=== PATIENT | female | born 1965 | race Caucasian/White ===

== ENCOUNTER 2016-10-20 02:14 | Inpatient (IN) | payer OTHER ==
[~2016-10-20] VITALS: Ht 177.8 cm; Wt 102.1 kg
[~2016-10-20 02:14] MED LIST: HYDR-3326 PO
[2016-10-20] MEDS ORDERED: IV NS 0.9% 1,000 ML BAG IV ONE (03:30)
[2016-10-20] MEDS ORDERED: ALPRAZOLAM 0.5 MG TABLET PO ONE (03:30)
[2016-10-20] MEDS ORDERED: VANCOMYCIN 1 GM in IV D5W 250 ML IV ONE (03:30)
[2016-10-20] MEDS ORDERED: ALPRAZOLAM 0.5 MG TABLET ONE ×2 (03:32→21:19)
[2016-10-20] MEDS ORDERED: VANCOMYCIN 1 GM VIAL ONE (03:32)
[2016-10-20] MEDS ORDERED: IV NS 0.9% 3,000 ML ONE (03:33)
[2016-10-20] MEDS ORDERED: IV SET PRIMARY PUMP SET 1 EA INFUS.SET MC ONE ×2 (03:33→10:00)
[2016-10-20] MEDS ORDERED: IV D5W 250 ML IV ONE (03:33)
[2016-10-20] MEDS ORDERED: IV SET PRIMARY 1 EA INFUS.SET MC ONE (03:33)
[2016-10-20 03:47] LABS: BASOPHILS % (AUTO) 0.2 % (0.0-2.0); DIFF TOTAL % 100 %; EOSINOPHILS # (AUTO) 0.3 /CMM (0.0-0.7); EOSINOPHILS % (AUTO) 2.6 % (0.0-6.0); HEMATOCRIT 42 % (33-45); HEMOGLOBIN 13.8 g/dL (11.5-14.8); LYMPHOCYTES # (AUTO) 2.3 /CMM (0.8-4.8); LYMPHOCYTES % (AUTO) 18.8 % (20.0-44.0); MEAN CORPUSCULAR HEMOGLOBIN 28 PG (26.0-33.0); MEAN CORPUSCULAR HGB CONC 33 g/dl (31.0-36.0); MEAN CORPUSCULAR VOLUME 86 fL (82-100); MONOCYTES # (AUTO) 0.7 /CMM (0.1-1.30); NEUTROPHILS # (AUTO) 8.8 /CMM (1.8-8.9); NEUTROPHILS % (AUTO) 72.4 % (43.0-81.0); PLATELET COUNT (AUTO) 385 /CMM (150-450); WHITE BLOOD COUNT (AUTO) 12.1 K/uL (4.3-11.0)
[2016-10-20 04:01] LABS: INR 0.95 (0.87-1.13); PROTHROMBIN TIME 10.3 SECS (9.5-12.7)
[2016-10-20 04:05] LABS: TROPONIN I < 0.017 ng/mL (0.00-0.056)
[2016-10-20 04:07] LABS: ALANINE AMINOTRANSFERASE 29 U/L (12-78); ALBUMIN 2.9 g/dL (3.4-5.0); ANION GAP 4 (5-14); ASPARTATE AMINOTRANSFERASE 13 U/L (15-37); BILIRUBIN,DIRECT 0.1 mg/dL (0.0-0.2); BILIRUBIN,TOTAL 0.2 mg/dL (0.2-1.0); CALCIUM, SERUM 9.4 mg/dL (8.5-10.1); CARBON DIOXIDE 29 mmol/L (21-32); CHLORIDE 94 mmol/L (98-107); CREATININE 0.7 mg/dL (0.6-1.3); GFR 88 mL/min (>60); INDIRECT BILIRUBIN 0.1 mg/dL (0.0-1.1); POTASSIUM 3.6 mmol/L (3.5-5.1); SODIUM SERUM 123 mmol/L (136-145); TOTAL PROTEIN, SERUM 8.6 g/dL (6.4-8.2); UREA NITROGEN, BLOOD 12 mg/dL (7-18)
[2016-10-20 04:12] LABS: GLUCOSE 385 mg/dL (74-106)
[2016-10-20] MEDS ORDERED: ONDANSETRON HCL/PF 4 MG/2 ML VIAL ONE (04:29)
[2016-10-20] MEDS ORDERED: HYDROMORPHONE 1 MG/1 ML DISP.SYRIN ONE (04:29)
[2016-10-20] MEDS ORDERED: INSULIN REGULAR, HUMAN 100 UNIT/ML 10 ML VIAL ONE (04:48)
[2016-10-20] MEDS ORDERED: MISCELLANEOUS MED 1 EA EA XX ONE ×2 (05:00)
[2016-10-20] MEDS ORDERED: HYDROMORPHONE 1 MG/1 ML DISP.SYRIN IV PRN (05:00)
[2016-10-20 06:05] VITALS: BP 121/64
[2016-10-20] MEDS ORDERED: *INSULIN REGULAR(HUMULIN R)HUM 100 UNIT/ML VIAL SQ PRN ×2 (07:30→12:00)
[2016-10-20] MEDS ORDERED: ACETAMINOPHEN 325 MG TABLET PO PRN (07:30)
[2016-10-20] MEDS ORDERED: DEXTROSE 50%-WATER 50 ML DISP.SYRIN IV PRN ×2 (07:30→12:00)
[2016-10-20] MEDS ORDERED: BLOOD SUGAR DIAGNOSTIC 1 EACH STRIP VI SCH (07:30)
[2016-10-20] MEDS ORDERED: MAGNESIUM HYDROXIDE 30 ML UDC PO PRN (07:30)
[2016-10-20] MEDS ORDERED: ONDANSETRON HCL/PF 4 MG/2 ML VIAL IVP PRN (07:30)
[2016-10-20] MEDS ORDERED: INSULIN REGULAR, HUMAN 100 UNIT/ML 3 ML VIAL SQ PRN (07:30)
[2016-10-20] MEDS ORDERED: MAG HYDROX/AL HYDROX/SIMETH 30 ML UDC PO PRN (07:30)
[2016-10-20] MEDS ORDERED: HYDROCODONE/APAP 5/325MG 1 EACH TABLET PO PRN (07:30)
[2016-10-20] MEDS ORDERED: ZOLPIDEM TARTRATE 5 MG TABLET PO PRN (07:30)
[2016-10-20] MEDS ORDERED: Z GUARD REMEDY 2 OZ OINT TP PRN (07:30)
[2016-10-20 07:40] LABS: CHOLESTEROL 104 mg/dL (<200); HDL CHOLESTEROL 30 mg/dL (40-60); LDL 60 mg/dL (0-99); TRIGLYCERIDES 147 mg/dL (30-150)
[2016-10-20 08:00] VITALS: BP 112/60
[2016-10-20] MEDS ORDERED: METF500T4 PO (08:21)
[2016-10-20] MEDS ORDERED: ALPR0.5T PO (08:21)
[2016-10-20] MEDS ORDERED: INSU3INS6 SQ (08:21)
[2016-10-20] MEDS ORDERED: ASPI-605 PO (08:21)
[2016-10-20] MEDS: PANTOPRAZOLE 40 MG TABLET.DR PO SCH (08:24)
[2016-10-20] MEDS: HYDROCODONE/APAP 10/325MG 1 EA TABLET PO PRN ×2 (08:24→22:29)
[2016-10-20] MEDS ORDERED: FEE PK DOSING 1 MIN EA MC ONE (08:30)
[2016-10-20] MEDS: IV NS 0.9% 1,000 ML IV PRN (10:05)
[2016-10-20] MEDS ORDERED: SECONDARY IV SET 1 EA INFUS.SET MC ONE ×2 (12:22→20:32)
[2016-10-20] MEDS: INSULIN REGULAR, HUMAN 100 UNIT/ML 3 ML VIAL SQ PRN ×2 (12:29→17:49)
[2016-10-20] MEDS: VANCOMYCIN 1 GM in IV D5W 250 ML IV SCH ×2 (12:30→20:31)
[2016-10-20] MEDS: BLOOD SUGAR DIAGNOSTIC 1 EACH STRIP IN SCH ×3 (12:30→22:00)
[2016-10-20 16:00] VITALS: BP 112/64
[2016-10-20 20:07] VITALS: BP 146/71
[2016-10-20] MEDS ORDERED: ALPRAZOLAM 0.25 MG TABLET PO PRN (21:00)
[2016-10-20] MEDS: ALPRAZOLAM 0.5 MG TABLET PO PRN (21:34)
[2016-10-20 22:00] VITALS: BP 146/71
[2016-10-20] MEDS: INSULIN DETEMIR 100 UNIT/ML CARTRIDGE SQ SCH (22:00)
[2016-10-20] MEDS ORDERED: INSULIN DETEMIR 100 UNIT/ML CARTRIDGE SQ ONE (22:30)
[2016-10-21] MEDS: IV NS 0.9% 1,000 ML IV PRN (03:43)
[2016-10-21] MEDS: VANCOMYCIN 1 GM in IV D5W 250 ML IV SCH ×3 (03:43→22:29)
[2016-10-21 06:36] LABS: BASOPHILS # (AUTO) 0.1 /CMM (0.0-0.2); BASOPHILS % (AUTO) 0.7 % (0.0-2.0); DIFF TOTAL % 100 %; EOSINOPHILS # (AUTO) 0.3 /CMM (0.0-0.7); EOSINOPHILS % (AUTO) 3.7 % (0.0-6.0); HEMATOCRIT 36 % (33-45); HEMOGLOBIN 11.9 g/dL (11.5-14.8); LYMPHOCYTES # (AUTO) 2.8 /CMM (0.8-4.8); LYMPHOCYTES % (AUTO) 35.4 % (20.0-44.0); MEAN CORPUSCULAR HEMOGLOBIN 28 PG (26.0-33.0); MEAN CORPUSCULAR HGB CONC 33 g/dl (31.0-36.0); MEAN CORPUSCULAR VOLUME 86 fL (82-100); MONOCYTES # (AUTO) 0.7 /CMM (0.1-1.30); MONOCYTES % (AUTO) 8.3 % (2.0-12.0); NEUTROPHILS # (AUTO) 4.2 /CMM (1.8-8.9); NEUTROPHILS % (AUTO) 51.9 % (43.0-81.0); PLATELET COUNT (AUTO) 325 /CMM (150-450); RED BLOOD CELL COUNT(AUTO) 4.22 MIL/uL (4.0-5.2)
[2016-10-21] MEDS: BLOOD SUGAR DIAGNOSTIC 1 EACH STRIP IN SCH ×2 (06:40→11:31)
[2016-10-21] MEDS: INSULIN REGULAR, HUMAN 100 UNIT/ML 3 ML VIAL SQ PRN ×3 (06:40→16:33)
[2016-10-21] MEDS ORDERED: LIDOCAINE HCL/PF 1% 30 ML SDV ONE (06:54)
[2016-10-21 06:55] LABS: CALCIUM, SERUM 8.6 mg/dL (8.5-10.1); CREATININE 0.7 mg/dL (0.6-1.3); POTASSIUM 4.2 mmol/L (3.5-5.1)
[2016-10-21] MEDS ORDERED: FENTANYL PF 100MCG/2ML AMPUL ONE (06:59)
[2016-10-21 07:01] VITALS: BP 132/65
[2016-10-21] MEDS ORDERED: BACITRACIN 50000 UNITS/VIAL ONE (07:12)
[2016-10-21] MEDS ORDERED: HYDROGEN PEROXIDE 480 ML BOTTLE ONE (07:34)
[2016-10-21 08:00] VITALS: BP_SYST 106; BP_SYST 132; BP_DIAS 53; BP_DIAS 65
[2016-10-21] MEDS: PANTOPRAZOLE 40 MG TABLET.DR PO SCH (08:55)
[2016-10-21] MEDS: ASPIRIN EC 81 MG TABLET.DR PO SCH (08:55)
[2016-10-21] MEDS: HYDROCODONE/APAP 10/325MG 1 EA TABLET PO PRN ×3 (11:30→22:36)
[2016-10-21] MEDS ORDERED: ANESTHESIA TRAY IN PYXIS 1 EA TRAY MC ONE (14:43)
[2016-10-21] MEDS: BLOOD SUGAR DIAGNOSTIC 1 EACH STRIP VI SCH ×3 (15:30→22:23)
[2016-10-21] MEDS ORDERED: DEXTROSE 50%-WATER 50 ML DISP.SYRIN IV PRN (15:30)
[2016-10-21] MEDS ORDERED: *INSULIN REGULAR(HUMULIN R)HUM 100 UNIT/ML VIAL SQ PRN (15:30)
[2016-10-21 16:00] VITALS: BP 130/64
[2016-10-21] MEDS: METFORMIN 500 MG TABLET PO SCH (16:23)
[2016-10-21 20:00] VITALS: BP_SYST 132; BP_DIAS 72; BP_DIAS 77
[2016-10-21] MEDS ORDERED: SECONDARY IV SET 1 EA INFUS.SET MC ONE (20:38)
[2016-10-21] MEDS: CEFTRIAXONE 1 G in IV D5W 50 ML IV SCH (20:44)
[2016-10-21] MEDS: INSULIN DETEMIR 100 UNIT/ML CARTRIDGE SQ SCH (22:23)
[2016-10-22] MEDS: IV NS 0.9% 1,000 ML IV PRN (01:42)
[2016-10-22] MEDS: ALPRAZOLAM 0.5 MG TABLET PO PRN (01:45)
[2016-10-22] MEDS: VANCOMYCIN 1 GM in IV D5W 250 ML IV SCH ×2 (05:03→11:53)
[2016-10-22] MEDS: BLOOD SUGAR DIAGNOSTIC 1 EACH STRIP VI SCH (06:45)
[2016-10-22] MEDS: PANTOPRAZOLE 40 MG TABLET.DR PO SCH (06:45)
[2016-10-22] MEDS: INSULIN REGULAR, HUMAN 100 UNIT/ML 3 ML VIAL SQ PRN ×3 (06:48→16:33)
[2016-10-22 07:01] LABS: CALCIUM, SERUM 8.5 mg/dL (8.5-10.1); CREATININE 0.6 mg/dL (0.6-1.3); POTASSIUM 4.1 mmol/L (3.5-5.1)
[2016-10-22 08:00] VITALS: BP 136/69
[2016-10-22] MEDS: ASPIRIN EC 81 MG TABLET.DR PO SCH (08:26)
[2016-10-22] MEDS: METFORMIN 500 MG TABLET PO SCH ×2 (08:26→16:35)
[2016-10-22] MEDS: HYDROCODONE/APAP 10/325MG 1 EA TABLET PO PRN ×3 (08:29→22:59)
[2016-10-22] MEDS ORDERED: DEXTROSE 50%-WATER 50 ML DISP.SYRIN IV PRN (11:30)
[2016-10-22] MEDS ORDERED: INSULIN DETEMIR 100 UNIT/ML CARTRIDGE SQ ONE (11:45)
[2016-10-22] MEDS: BLOOD SUGAR DIAGNOSTIC 1 EACH STRIP IN SCH ×3 (11:53→22:00)
[2016-10-22 15:39] VITALS: BP 129/60
[2016-10-22 16:00] VITALS: BP 129/60
[2016-10-22] MEDS: INSULIN DETEMIR 100 UNIT/ML CARTRIDGE SQ SCH (16:33)
[2016-10-22] MEDS: LACTOBACILLUS RHAMNOSUS GG 1 EACH CAP.SPRINK PO SCH (16:35)
[2016-10-22 20:00] VITALS: BP 106/55
[2016-10-22] MEDS: CEFTRIAXONE 1 G in IV D5W 50 ML IV SCH (22:59)
[2016-10-22] MEDS: *INSULIN REGULAR(HUMULIN R)HUM 100 UNIT/ML VIAL SQ PRN (23:25)
[2016-10-23] MEDS: ALPRAZOLAM 0.5 MG TABLET PO PRN ×2 (00:23→19:50)
[2016-10-23 06:56] LABS: BASOPHILS % (AUTO) 0.5 % (0.0-2.0); DIFF TOTAL % 100 %; EOSINOPHILS # (AUTO) 0.4 /CMM (0.0-0.7); EOSINOPHILS % (AUTO) 4.2 % (0.0-6.0); HEMATOCRIT 36 % (33-45); HEMOGLOBIN 11.8 g/dL (11.5-14.8); LYMPHOCYTES # (AUTO) 3.3 /CMM (0.8-4.8); LYMPHOCYTES % (AUTO) 37.6 % (20.0-44.0); MEAN CORPUSCULAR HEMOGLOBIN 28 PG (26.0-33.0); MEAN CORPUSCULAR HGB CONC 33 g/dl (31.0-36.0); MEAN CORPUSCULAR VOLUME 86 fL (82-100); MONOCYTES # (AUTO) 0.5 /CMM (0.1-1.30); MONOCYTES % (AUTO) 5.8 % (2.0-12.0); NEUTROPHILS # (AUTO) 4.5 /CMM (1.8-8.9); NEUTROPHILS % (AUTO) 51.9 % (43.0-81.0); PLATELET COUNT (AUTO) 316 /CMM (150-450); RED BLOOD CELL COUNT(AUTO) 4.19 MIL/uL (4.0-5.2); WHITE BLOOD COUNT (AUTO) 8.8 K/uL (4.3-11.0)
[2016-10-23] MEDS: BLOOD SUGAR DIAGNOSTIC 1 EACH STRIP IN SCH ×4 (06:58→22:12)
[2016-10-23] MEDS: INSULIN REGULAR, HUMAN 100 UNIT/ML 3 ML VIAL SQ PRN ×2 (07:00→12:19)
[2016-10-23 07:10] LABS: CALCIUM, SERUM 8.6 mg/dL (8.5-10.1); CREATININE 0.7 mg/dL (0.6-1.3); POTASSIUM 3.9 mmol/L (3.5-5.1)
[2016-10-23 08:00] VITALS: BP 108/65
[2016-10-23] MEDS: ASPIRIN EC 81 MG TABLET.DR PO SCH (09:05)
[2016-10-23] MEDS: METFORMIN 500 MG TABLET PO SCH ×2 (09:07→17:35)
[2016-10-23] MEDS: PANTOPRAZOLE 40 MG TABLET.DR PO SCH (09:07)
[2016-10-23] MEDS: HYDROCODONE/APAP 10/325MG 1 EA TABLET PO PRN ×3 (09:07→21:16)
[2016-10-23] MEDS: LACTOBACILLUS RHAMNOSUS GG 1 EACH CAP.SPRINK PO SCH ×2 (09:07→17:35)
[2016-10-23] MEDS: INSULIN DETEMIR 100 UNIT/ML CARTRIDGE SQ SCH ×2 (09:10→17:44)
[2016-10-23 16:00] VITALS: BP_SYST 110; BP_SYST 126; BP_DIAS 68; BP_DIAS 69
[2016-10-23] MEDS: CEFTRIAXONE 1 G in IV D5W 50 ML IV SCH (19:50)
[2016-10-23 20:00] VITALS: BP 122/83
[2016-10-23 22:00] VITALS: BP 122/83
[2016-10-23] MEDS: *INSULIN REGULAR(HUMULIN R)HUM 100 UNIT/ML VIAL SQ PRN (22:20)
[2016-10-24] MEDS: HYDROCODONE/APAP 10/325MG 1 EA TABLET PO PRN ×5 (01:44→21:58)
[2016-10-24] MEDS: BLOOD SUGAR DIAGNOSTIC 1 EACH STRIP IN SCH ×4 (06:44→21:59)
[2016-10-24 06:48] LABS: CALCIUM, SERUM 8.7 mg/dL (8.5-10.1); CREATININE 0.7 mg/dL (0.6-1.3); POTASSIUM 4.1 mmol/L (3.5-5.1)
[2016-10-24] MEDS: INSULIN REGULAR, HUMAN 100 UNIT/ML 3 ML VIAL SQ PRN ×3 (06:48→17:09)
[2016-10-24 06:53] LABS: BASOPHILS # (AUTO) 0.1 /CMM (0.0-0.2); BASOPHILS % (AUTO) 0.5 % (0.0-2.0); DIFF TOTAL % 100 %; EOSINOPHILS # (AUTO) 0.3 /CMM (0.0-0.7); EOSINOPHILS % (AUTO) 3.3 % (0.0-6.0); HEMATOCRIT 36 % (33-45); HEMOGLOBIN 11.9 g/dL (11.5-14.8); LYMPHOCYTES # (AUTO) 3.2 /CMM (0.8-4.8); LYMPHOCYTES % (AUTO) 31.8 % (20.0-44.0); MEAN CORPUSCULAR HEMOGLOBIN 28 PG (26.0-33.0); MEAN CORPUSCULAR HGB CONC 33 g/dl (31.0-36.0); MEAN CORPUSCULAR VOLUME 85 fL (82-100); MONOCYTES # (AUTO) 0.5 /CMM (0.1-1.30); MONOCYTES % (AUTO) 5.4 % (2.0-12.0); NEUTROPHILS # (AUTO) 5.9 /CMM (1.8-8.9); PLATELET COUNT (AUTO) 338 /CMM (150-450); RED BLOOD CELL COUNT(AUTO) 4.25 MIL/uL (4.0-5.2); WHITE BLOOD COUNT (AUTO) 9.9 K/uL (4.3-11.0)
[2016-10-24 08:00] VITALS: BP 104/57
[2016-10-24] MEDS: PANTOPRAZOLE 40 MG TABLET.DR PO SCH (08:28)
[2016-10-24] MEDS: METFORMIN 500 MG TABLET PO SCH ×2 (08:29→16:47)
[2016-10-24] MEDS: LACTOBACILLUS RHAMNOSUS GG 1 EACH CAP.SPRINK PO SCH ×2 (08:29→16:47)
[2016-10-24] MEDS: ASPIRIN EC 81 MG TABLET.DR PO SCH (08:29)
[2016-10-24] MEDS: INSULIN DETEMIR 100 UNIT/ML CARTRIDGE SQ SCH ×2 (09:10→17:10)
[2016-10-24 16:00] VITALS: BP 128/68
[2016-10-24] MEDS: CEFTRIAXONE 1 G in IV D5W 50 ML IV SCH (19:56)
[2016-10-24 20:00] VITALS: BP 112/56
[2016-10-24] MEDS: *INSULIN REGULAR(HUMULIN R)HUM 100 UNIT/ML VIAL SQ PRN (22:07)
[2016-10-25] MEDS: HYDROCODONE/APAP 10/325MG 1 EA TABLET PO PRN ×5 (02:06→21:35)
[2016-10-25] MEDS: INSULIN REGULAR, HUMAN 100 UNIT/ML 3 ML VIAL SQ PRN ×3 (06:20→17:37)
[2016-10-25] MEDS: BLOOD SUGAR DIAGNOSTIC 1 EACH STRIP IN SCH ×4 (06:29→21:14)
[2016-10-25 07:07] LABS: CREATININE 0.7 mg/dL (0.6-1.3); POTASSIUM 4.1 mmol/L (3.5-5.1)
[2016-10-25 08:00] VITALS: BP 114/58
[2016-10-25] MEDS: METFORMIN 500 MG TABLET PO SCH ×2 (08:20→17:36)
[2016-10-25] MEDS: PANTOPRAZOLE 40 MG TABLET.DR PO SCH (08:20)
[2016-10-25] MEDS: ASPIRIN EC 81 MG TABLET.DR PO SCH (08:20)
[2016-10-25] MEDS: INSULIN DETEMIR 100 UNIT/ML CARTRIDGE SQ SCH ×2 (08:20→17:38)
[2016-10-25] MEDS: LACTOBACILLUS RHAMNOSUS GG 1 EACH CAP.SPRINK PO SCH ×2 (08:20→17:36)
[2016-10-25] MEDS ORDERED: NEOMY SULF/BACITRAC ZN/POLY 15 GM TUBE TP SCH ×2 (13:00)
[2016-10-25 16:00] VITALS: BP 112/54
[2016-10-25 19:56] VITALS: BP 123/61
[2016-10-25 20:00] VITALS: BP 123/61
[2016-10-25] MEDS: CEFTRIAXONE 1 G in IV D5W 50 ML IV SCH (20:27)
[2016-10-25] MEDS: *INSULIN REGULAR(HUMULIN R)HUM 100 UNIT/ML VIAL SQ PRN (21:42)
[2016-10-26] MEDS: HYDROCODONE/APAP 10/325MG 1 EA TABLET PO PRN ×4 (01:52→20:19)
[2016-10-26 06:29] LABS: CALCIUM, SERUM 9.1 mg/dL (8.5-10.1); CREATININE 0.7 mg/dL (0.6-1.3); POTASSIUM 4.1 mmol/L (3.5-5.1)
[2016-10-26] MEDS: BLOOD SUGAR DIAGNOSTIC 1 EACH STRIP IN SCH ×4 (07:03→22:00)
[2016-10-26] MEDS: PANTOPRAZOLE 40 MG TABLET.DR PO SCH (07:05)
[2016-10-26] MEDS: INSULIN REGULAR, HUMAN 100 UNIT/ML 3 ML VIAL SQ PRN ×3 (07:09→17:21)
[2016-10-26 08:00] VITALS: BP 111/55
[2016-10-26] MEDS: INSULIN DETEMIR 100 UNIT/ML CARTRIDGE SQ SCH ×2 (08:17→17:22)
[2016-10-26] MEDS: ASPIRIN EC 81 MG TABLET.DR PO SCH (08:17)
[2016-10-26] MEDS: LACTOBACILLUS RHAMNOSUS GG 1 EACH CAP.SPRINK PO SCH ×2 (08:17→17:23)
[2016-10-26] MEDS: METFORMIN 500 MG TABLET PO SCH ×2 (08:17→17:23)
[2016-10-26] MEDS: NEOMY SULF/BACITRAC ZN/POLY 15 GM TUBE TP SCH (08:21)
[2016-10-26 16:00] VITALS: BP 124/60
[2016-10-26 19:00] VITALS: BP 124/63
[2016-10-26 20:00] VITALS: BP 124/63
[2016-10-26] MEDS: CEFTRIAXONE 1 G in IV D5W 50 ML IV SCH (20:19)
[2016-10-26] MEDS: *INSULIN REGULAR(HUMULIN R)HUM 100 UNIT/ML VIAL SQ PRN (23:12)
[2016-10-27] MEDS: HYDROCODONE/APAP 10/325MG 1 EA TABLET PO PRN ×5 (01:21→22:25)
[2016-10-27] MEDS: BLOOD SUGAR DIAGNOSTIC 1 EACH STRIP IN SCH ×4 (06:31→21:58)
[2016-10-27] MEDS: INSULIN REGULAR, HUMAN 100 UNIT/ML 3 ML VIAL SQ PRN ×3 (06:32→18:00)
[2016-10-27 08:00] VITALS: BP 124/63
[2016-10-27] MEDS: PANTOPRAZOLE 40 MG TABLET.DR PO SCH (08:50)
[2016-10-27] MEDS: LACTOBACILLUS RHAMNOSUS GG 1 EACH CAP.SPRINK PO SCH ×2 (08:50→16:47)
[2016-10-27] MEDS: METFORMIN 500 MG TABLET PO SCH ×2 (08:50→16:47)
[2016-10-27] MEDS: ASPIRIN EC 81 MG TABLET.DR PO SCH (08:50)
[2016-10-27] MEDS: NEOMY SULF/BACITRAC ZN/POLY 15 GM TUBE TP SCH (08:58)
[2016-10-27] MEDS: INSULIN DETEMIR 100 UNIT/ML CARTRIDGE SQ SCH ×2 (08:58→17:58)
[2016-10-27 10:20] VITALS: BP 99/58
[2016-10-27 16:00] VITALS: BP 125/66
[2016-10-27 20:00] VITALS: BP 117/72
[2016-10-27] MEDS: CEFTRIAXONE 1 G in IV D5W 50 ML IV SCH (20:06)
[2016-10-27] MEDS: *INSULIN REGULAR(HUMULIN R)HUM 100 UNIT/ML VIAL SQ PRN (21:57)
[2016-10-28] MEDS: HYDROCODONE/APAP 10/325MG 1 EA TABLET PO PRN ×2 (06:18→09:53)
[2016-10-28] MEDS: PANTOPRAZOLE 40 MG TABLET.DR PO SCH ×2 (06:45→09:50)
[2016-10-28] MEDS: BLOOD SUGAR DIAGNOSTIC 1 EACH STRIP IN SCH ×2 (06:45→12:39)
[2016-10-28] MEDS: INSULIN REGULAR, HUMAN 100 UNIT/ML 3 ML VIAL SQ PRN ×2 (06:51→12:42)
[2016-10-28] MEDS ORDERED: CEFT1VIA15 IV (07:57)
[2016-10-28 08:02] VITALS: BP 113/60
[2016-10-28] MEDS: NEOMY SULF/BACITRAC ZN/POLY 15 GM TUBE TP SCH (09:00)
[2016-10-28] MEDS: LACTOBACILLUS RHAMNOSUS GG 1 EACH CAP.SPRINK PO SCH (09:50)
[2016-10-28] MEDS: METFORMIN 500 MG TABLET PO SCH (09:50)
[2016-10-28] MEDS: ASPIRIN EC 81 MG TABLET.DR PO SCH (09:50)
[2016-10-28] MEDS: INSULIN DETEMIR 100 UNIT/ML CARTRIDGE SQ SCH (09:57)
[2016-10-28 14:00] VITALS: BP 113/60
== END 2016-10-28 14:00 | disposition home health service (06) | DRG 313 ==
LOC: ER 02:19 → MED 03:53 → MEDSG2 17:28 → WOUND2 22:30
PROVIDERS: ADMIT Nurse Practitioner Acute Care; ATTEND Nurse Practitioner Acute Care
PROC: 0KBW0ZZ Excision of Left Foot Muscle, Open Approach (ICD-10-PCS; principal; 2016-10-21 07:22)
PROC: 0Y9L0ZZ Drainage of Left Ankle Region, Open Approach (ICD-10-PCS; principal; 2016-10-21 07:22)
PROC: 0SPG04Z Removal of Internal Fixation Device from Left Ankle Joint, Open Approach (ICD-10-PCS; principal; 2016-10-21 07:22)
PROC: 05H633Z Insertion of Infusion Device into Left Subclavian Vein, Percutaneous Approach (ICD-10-PCS; 2016-10-27)
DX: T84.59XA Infection and inflammatory reaction due to other internal joint prosthesis, initial encounter (principal); E11.42 Type 2 diabetes mellitus with diabetic polyneuropathy; E44.0 Moderate protein-calorie malnutrition; R65.10 Systemic inflammatory response syndrome (SIRS) of non-infectious origin without acute organ dysfunction; E11.621 Type 2 diabetes mellitus with foot ulcer; E66.01 Morbid (severe) obesity due to excess calories; L03.116 Cellulitis of left lower limb; E11.65 Type 2 diabetes mellitus with hyperglycemia; F17.210 Nicotine dependence, cigarettes, uncomplicated; E87.6 Hypokalemia; L97.529 Non-pressure chronic ulcer of other part of left foot with unspecified severity; E11.610 Type 2 diabetes mellitus with diabetic neuropathic arthropathy; L02.612 Cutaneous abscess of left foot; Z88.2 Allergy status to sulfonamides; Z88.8 Allergy status to other drugs, medicaments and biological substances; Z68.32 Body mass index [BMI] 32.0-32.9, adult; B95.1 Streptococcus, group B, as the cause of diseases classified elsewhere; Y92.89 Other specified places as the place of occurrence of the external cause; Y79.2 Prosthetic and other implants, materials and accessory orthopedic devices associated with adverse incidents
CPT/HCPCS: 36415; 71010-TC; 73630-TC; 80048-TC; 80061-TC; 80076-TC; 80202-TC; 82962-TC; 83605-TC; 83935-TC; 84484-TC; 85025-TC; 85730-TC; 86850-TC; 87040-TC; 87070-TC; 87081-TC; 97001-TC; A4217; A4606; A6253; A6402; A6403; J0696; J1170; J1815; J2405; J3010; J3370; J3490; J7030; J7060; Z7610

== ENCOUNTER 2016-11-03 13:50 | Outpatient (CLI) | payer OTHER ==
[~2016-11-03 13:50] MED LIST changes: +ALPR0.5T PO; +ASPI-605 PO; +CEFT1VIA15 IV; +INSU3INS6 SQ; +METF500T4 PO
== END 2016-11-03 23:59 | disposition home or self-care (01) ==
LOC: WOU 13:50
PROVIDERS: ATTEND Podiatrist Foot & Ankle Surgery
DX: T81.89XA Other complications of procedures, not elsewhere classified, initial encounter (principal); E11.610 Type 2 diabetes mellitus with diabetic neuropathic arthropathy; E11.40 Type 2 diabetes mellitus with diabetic neuropathy, unspecified; Z79.4 Long term (current) use of insulin; F41.0 Panic disorder [episodic paroxysmal anxiety]; F17.219 Nicotine dependence, cigarettes, with unspecified nicotine-induced disorders; Z88.3 Allergy status to other anti-infective agents; Z88.2 Allergy status to sulfonamides; L03.116 Cellulitis of left lower limb; E11.621 Type 2 diabetes mellitus with foot ulcer; L97.524 Non-pressure chronic ulcer of other part of left foot with necrosis of bone
CPT/HCPCS: 11044; A6402

== ENCOUNTER 2016-11-03 22:27 | Emergency (ER) | payer OTHER ==
[~2016-11-03] VITALS: Ht 177.8 cm; Wt 102.1 kg
[2016-11-03 22:29] VITALS: BP 120/71
== END 2016-11-04 00:10 | disposition home or self-care (01) ==
LOC: ER 22:29
DX: Z45.2 Encounter for adjustment and management of vascular access device (principal); E11.9 Type 2 diabetes mellitus without complications; Z88.1 Allergy status to other antibiotic agents; Z88.2 Allergy status to sulfonamides; Z79.4 Long term (current) use of insulin; Z79.82 Long term (current) use of aspirin
CPT/HCPCS: 99281; A4606; Z7610; Z7502

== ENCOUNTER 2016-11-10 13:54 | Outpatient (CLI) | payer OTHER | END 2016-11-10 23:59 | disposition home or self-care (01) | LOC: WOU 13:54 | PROVIDERS: ATTEND Podiatrist Foot & Ankle Surgery | DX: E11.621 Type 2 diabetes mellitus with foot ulcer (principal); L97.424 Non-pressure chronic ulcer of left heel and midfoot with necrosis of bone; S91.131A Puncture wound without foreign body of right great toe without damage to nail, initial encounter; X58.XXXA Exposure to other specified factors, initial encounter; Y92.89 Other specified places as the place of occurrence of the external cause; E11.622 Type 2 diabetes mellitus with other skin ulcer; L97.321 Non-pressure chronic ulcer of left ankle limited to breakdown of skin; F41.0 Panic disorder [episodic paroxysmal anxiety]; Z98.890 Other specified postprocedural states; Z88.1 Allergy status to other antibiotic agents; Z88.2 Allergy status to sulfonamides; E11.610 Type 2 diabetes mellitus with diabetic neuropathic arthropathy; L03.116 Cellulitis of left lower limb | CPT/HCPCS: 11042; 11044; A6402 ==

== ENCOUNTER 2016-11-13 14:15 | Outpatient (CLI) | payer OTHER | END 2016-11-13 23:59 | disposition home or self-care (01) | LOC: WOU 14:15 | PROVIDERS: ATTEND Podiatrist Foot & Ankle Surgery | DX: T81.89XA Other complications of procedures, not elsewhere classified, initial encounter (principal); L97.524 Non-pressure chronic ulcer of other part of left foot with necrosis of bone; S90.411D Abrasion, right great toe, subsequent encounter; X58.XXXD Exposure to other specified factors, subsequent encounter; E11.610 Type 2 diabetes mellitus with diabetic neuropathic arthropathy; E11.40 Type 2 diabetes mellitus with diabetic neuropathy, unspecified; F17.210 Nicotine dependence, cigarettes, uncomplicated; F41.0 Panic disorder [episodic paroxysmal anxiety]; Z88.1 Allergy status to other antibiotic agents; Z88.2 Allergy status to sulfonamides; E66.9 Obesity, unspecified; Z68.33 Body mass index [BMI] 33.0-33.9, adult; Z71.3 Dietary counseling and surveillance; Z79.4 Long term (current) use of insulin; Z79.84 Long term (current) use of oral hypoglycemic drugs | CPT/HCPCS: 11044; A6402 ==

== ENCOUNTER 2016-11-17 14:15 | Outpatient (CLI) | payer OTHER | END 2016-11-17 23:59 | disposition home or self-care (01) | LOC: WOU 14:15 | PROVIDERS: ATTEND Podiatrist Foot & Ankle Surgery | DX: E11.621 Type 2 diabetes mellitus with foot ulcer (principal); L97.424 Non-pressure chronic ulcer of left heel and midfoot with necrosis of bone; L97.511 Non-pressure chronic ulcer of other part of right foot limited to breakdown of skin; Z88.1 Allergy status to other antibiotic agents; Z88.2 Allergy status to sulfonamides; Z98.890 Other specified postprocedural states | CPT/HCPCS: 11044; A6402 ==